=== PATIENT | male | born 1970 | race African-American/Black ===

== ENCOUNTER 2022-06-07 10:36 | Emergency (ER) | payer MEDICAID ==
[~2022-06-07] VITALS: Ht 167.6 cm; Wt 85.3 kg
[2022-06-07 10:39] VITALS: BP 125/80
--- NOTE | 2022-06-07 10:44 | NUR ---
MARK. HANDED ON URINE CUP.
--- NOTE | 2022-06-07 10:58 | NUR ---
C/O 03/07 HEADACHE, DIARRHEA, DIZZINESS X 2 DAYS. PMH: DENIES
[2022-06-07 13:16] LABS: BASOPHILS % (AUTO) 0.6 % (0.0-2.0); EOSINOPHILS # (AUTO) 0.1 K/uL (0-0.4); LYMPHOCYTES # (AUTO) 1.9 K/uL (2.0-11.5); LYMPHOCYTES % (AUTO) 26.4 % (20.5-51.1); MEAN CORPUSCULAR HEMOGLOBIN 30 pg (27-31); MEAN CORPUSCULAR HGB CONC 34 g/dL (33-37); MEAN CORPUSCULAR VOLUME 86.7 fL (80-94); MONOCYTES # (AUTO) 0.6 K/uL (0.8-1.0); MONOCYTES % (AUTO) 7.9 % (1.7-9.3); NEUTROPHILS # (AUTO) 4.5 K/uL (1.8-7.7); NEUTROPHILS % (AUTO) 64.1 % (42.2-75.2); PLATELET COUNT (AUTO) 274 K/uL (140-450); RED BLOOD CELL COUNT(AUTO) 4.73 MIL/uL (4.20-6.10); RED CELL DISTRIBUTION WIDTH 13.5 % (11.6-13.7); WHITE BLOOD COUNT (AUTO) 7.1 K/uL (4.8-10.8)
[2022-06-07 13:40] LABS: ALBUMIN 4.3 g/dL (3.4-5.0); ANION GAP 15.8 (8-16); ASPARTATE AMINOTRANSFERASE 23 U/L (15-37); CARBON DIOXIDE 26.4 mmol/L (21-32); CHLORIDE 102 mmol/L (98-107); GFR ARICAN-AMERICAN 101 mL/min (>90); GLUCOSE 104 mg/dL (74-106); MAGNESIUM 1.7 mg/dL (1.8-2.4); PHOSPHORUS 4.1 mg/dL (2.5-4.9); POTASSIUM 4.2 mmol/L (3.5-5.1); SODIUM SERUM 140 mmol/L (136-145); TOTAL BILIRUBIN 0.6 mg/dL (0.0-1.0); UREA NITROGEN, BLOOD 18 mg/dL (7-18)
--- NOTE | 2022-06-07 15:07 | NUR ---
Pt taken to bed 8.
[2022-06-07 15:17] LABS: APPEARANCE,URINE CLEAR (CLEAR); BILIRUBIN,URINE NEGATIVE (NEGATIVE); BLOOD, URINE NEGATIVE (NEGATIVE); COLOR,URINE YELLOW (YELLOW); LEUKOCYTE ESTERASE ,URINE NEGATIVE (NEGATIVE); NITRITE, URINE NEGATIVE (NEGATIVE); UGLUCOSE NEGATIVE (NEGATIVE)
[2022-06-07 15:52] LABS: BARBITURATE, URINE NEGATIVE ng/ml (NEG <=200); BENZODIAZEPINE, URINE NEGATIVE ng/mL (NEG <=200); CANNABINOID, URINE NEGATIVE ng/mL (NEG <=50); COCAINE, URINE NEGATIVE ng/mL (NEG <=300); OPIATE, URINE NEGATIVE ng/mL (NEG <=2000); PHENCYCLIDINE SCREEN,URINE NEGATIVE ng/mL (NEG <=25)
[2022-06-07] MEDS ORDERED: ACET-10509 PO (16:20)
[2022-06-07 16:26] VITALS: BP 129/82
--- NOTE | 2022-06-07 16:26 | NUR ---
Patient discharged with v/s stable. Written and verbal after care instructions FOR DEHYDRATION given and explained. Patient alert, oriented and verbalized understanding of instructions. Ambulatory with steady gait. All questions addressed prior to discharge. ID band removed. Patient advised to follow up with PMD. Rx of IBUPROFEN given.. Opportunity to ask questions provided and answered.
== END 2022-06-07 16:26 | disposition home or self-care (01) ==
LOC: MED 10:36
DX: R55 Syncope and collapse (principal); E86.0 Dehydration
CPT/HCPCS: 36415; 71045; 80053; 80305; 81003; 83690; 83735; 84100; 84484; 85025; 99284

== ENCOUNTER 2022-08-01 09:48 | Emergency (ER) | payer MEDICAID ==
[~2022-08-01] VITALS: Ht 172.7 cm; Wt 77.1 kg
[~2022-08-01 09:48] MED LIST: ACET-10509 PO
[2022-08-01 09:53] VITALS: BP 141/77
--- NOTE | 2022-08-01 10:39 | NUR ---
PT AMBULATED TO ER BED 5
--- NOTE | 2022-08-01 10:55 | NUR ---
51YO MALE PT C/O L EAR PAIN X1WEEK. -RINGING -DECREASE IN HEARING. EAR PINK W/O SWELLING. DENIES TAKING MEDICATION FOR PAIN, N/V/D, CHEST PAIN, SOB, DIZZINESS , FEVER OR CHILLS. PT AAOX4, HOB POSITIONED PER COMFORT HX:DENIES NKA
--- NOTE | 2022-08-01 11:08 | NUR ---
MICAELA LORENZO AT BEDSIDE FOR EVALUATION
--- NOTE | 2022-08-01 11:29 | NUR ---
pt swabbed for covid. walked and handed to lab
[2022-08-01] MEDS ORDERED: IBUP-2213 PO (11:34)
[2022-08-01] MEDS ORDERED: SUD30 PO (11:34)
--- NOTE | 2022-08-01 11:45 | NUR ---
Patient discharged with v/s stable. Written and verbal after care instructions FOR EARACHE given and explained. Patient alert, oriented and verbalized understanding of instructions. Ambulatory with steady gait. All questions addressed prior to discharge. ID band removed. Patient advised to follow up with PMD. Rx of IBUPROFEN AND SUDAFED given. Opportunity to ask questions provided and answered.
--- NOTE | 2022-08-01 11:46 | NUR ---
The patient's care was reviewed and supervised by Lisa Orr RN.
== END 2022-08-01 11:45 | disposition home or self-care (01) ==
LOC: MED 09:48
DX: H92.03 Otalgia, bilateral (principal); Z20.822 Contact with and (suspected) exposure to COVID-19; Z79.899 Other long term (current) drug therapy
CPT/HCPCS: 99283

== ENCOUNTER 2023-01-23 12:34 | Emergency (ER) | payer MEDICAID ==
[~2023-01-23] VITALS: Ht 167.6 cm; Wt 82.6 kg
[~2023-01-23 12:34] MED LIST changes: +IBUP-2213 PO; +SUD30 PO
[2023-01-23 12:40] VITALS: BP 130/76
[2023-01-23] MEDS ORDERED: KETOROLAC 60 MG/2 ML VIAL IM ONE (13:20)
[2023-01-23] MEDS ORDERED: IBUP-2213 PO (13:40)
[2023-01-23] MEDS ORDERED: PRED20TA5 PO (13:40)
[2023-01-23 13:43] VITALS: BP 130/76
--- NOTE | 2023-01-23 13:44 | NUR ---
Patient discharged with v/s stable. Written and verbal after care instructions given and explained. Patient alert, oriented and verbalized understanding of instructions. Ambulatory with steady gait. All questions addressed prior to discharge. ID band removed. Patient advised to follow up with PMD. Rx of IBUPROFEN, PREDNISONE given. Patient educated on indication of medication including possible reaction and side effects. Opportunity to ask questions provided and answered.
== END 2023-01-23 13:43 | disposition home or self-care (01) ==
LOC: MED 12:34
DX: J02.9 Acute pharyngitis, unspecified (principal); Z79.899 Other long term (current) drug therapy
CPT/HCPCS: 96372; 99283; J1885

== ENCOUNTER 2023-06-03 03:10 | Emergency (ER) | payer MEDICAID ==
[~2023-06-03] VITALS: Ht 167.6 cm; Wt 81.6 kg
[~2023-06-03 03:10] MED LIST changes: +PRED20TA5 PO
[2023-06-03 03:20] VITALS: BP 116/75; PULSE 92; RESP 16; TEMP 98.1; O2SAT 98
[2023-06-03] MEDS ORDERED: OPTHALMIC IRRIGATION 15 ML BTL OP ONE (05:30)
[2023-06-03] MEDS ORDERED: TETRACAINE HCL/PF 0.5% OPTH 4 ML BTL OP ONE (05:30)
[2023-06-03] MEDS ORDERED: TOBR5DRO10 OP (05:59)
[2023-06-03 06:13] VITALS: BP 114/81; PULSE 83; O2SAT 99
== END 2023-06-03 06:31 | disposition home or self-care (01) ==
LOC: MED 03:10
DX: H10.211 Acute toxic conjunctivitis, right eye (principal); Z79.899 Other long term (current) drug therapy
CPT/HCPCS: 99283

== ENCOUNTER 2023-10-16 15:40 | Emergency (ER) | payer MEDICAID ==
[~2023-10-16] VITALS: Ht 167.6 cm; Wt 77.1 kg
[~2023-10-16 15:40] MED LIST changes: +TOBR5DRO10 OP
[2023-10-16 15:48] VITALS: BP 117/73; PULSE 68; RESP 18; TEMP 97.8; O2SAT 99
[2023-10-16 17:05] LABS: BASOPHILS % (AUTO) 0.3 % (0.0-2.0); EOSINOPHILS # (AUTO) 0.1 K/uL (0-0.4); EOSINOPHILS % (AUTO) 1.6 % (0.0-4.0); HEMOGLOBIN 13.2 g/dL (12.0-18.0); LYMPHOCYTES # (AUTO) 2.2 K/uL (2.0-11.5); MEAN CORPUSCULAR HEMOGLOBIN 28 pg (27-31); MEAN CORPUSCULAR HGB CONC 34 g/dL (33-37); MEAN CORPUSCULAR VOLUME 84.2 fL (80-94); MONOCYTES # (AUTO) 0.4 K/uL (0.8-1.0); MONOCYTES % (AUTO) 7.8 % (1.7-9.3); NEUTROPHILS # (AUTO) 2.8 K/uL (1.8-7.7); NEUTROPHILS % (AUTO) 50.3 % (42.2-75.2); PLATELET COUNT (AUTO) 243 K/uL (140-450); RED BLOOD CELL COUNT(AUTO) 4.63 MIL/uL (4.20-6.10); RED CELL DISTRIBUTION WIDTH 13.3 % (11.6-13.7); WHITE BLOOD COUNT (AUTO) 5.5 K/uL (4.8-10.8)
[2023-10-16 17:15] LABS: ANION GAP 13.3 (8-16); CALCIUM 8.8 mg/dL (8.5-10.1); CARBON DIOXIDE 25.6 mmol/L (21-32); CREATININE 1.1 mg/dL (0.6-1.3); POTASSIUM 3.9 mmol/L (3.5-5.1)
[2023-10-16 17:21] LABS: ALBUMIN 3.7 g/dL (3.4-5.0); BILIRUBIN,DIRECT 0.1 mg/dL (0.0-0.3); TOTAL BILIRUBIN 0.5 mg/dL (0.0-1.0); TOTAL PROTEIN, SERUM 8.5 g/dL (6.4-8.2)
[2023-10-16 18:23] VITALS: O2SAT 99
== END 2023-10-16 18:11 | disposition home or self-care (01) ==
LOC: MED 15:40
DX: R20.2 Paresthesia of skin (principal); E11.9 Type 2 diabetes mellitus without complications; Z79.4 Long term (current) use of insulin; Z79.899 Other long term (current) drug therapy
CPT/HCPCS: 36415; 80048; 80076; 85025; 99283

== ENCOUNTER 2023-12-28 11:13 | Emergency (ER) | payer MEDICAID ==
[~2023-12-28] VITALS: Ht 167.6 cm; Wt 77.1 kg
[2023-12-28 11:21] VITALS: BP 116/69; PULSE 61; RESP 18; TEMP 98; O2SAT 98
[2023-12-28 12:29] LABS: BASOPHILS % (AUTO) 0.5 % (0.0-2.0); EOSINOPHILS # (AUTO) 0.1 K/uL (0-0.4); EOSINOPHILS % (AUTO) 1.3 % (0.0-4.0); HEMATOCRIT 39.1 % (36-52); HEMOGLOBIN 13.1 g/dL (12.0-18.0); LYMPHOCYTES # (AUTO) 1.9 K/uL (2.0-11.5); LYMPHOCYTES % (AUTO) 42.6 % (20.5-51.1); MEAN CORPUSCULAR HEMOGLOBIN 28 pg (27-31); MEAN CORPUSCULAR HGB CONC 34 g/dL (33-37); MEAN CORPUSCULAR VOLUME 84.3 fL (80-94); MONOCYTES # (AUTO) 0.4 K/uL (0.8-1.0); MONOCYTES % (AUTO) 8.6 % (1.7-9.3); NEUTROPHILS # (AUTO) 2.1 K/uL (1.8-7.7); PLATELET COUNT (AUTO) 248 K/uL (140-450); RED BLOOD CELL COUNT(AUTO) 4.63 MIL/uL (4.20-6.10); RED CELL DISTRIBUTION WIDTH 13.9 % (11.6-13.7); WHITE BLOOD COUNT (AUTO) 4.6 K/uL (4.8-10.8)
[2023-12-28 12:41] VITALS: O2SAT 98
[2023-12-28 12:42] LABS: ANION GAP 11.7 (8-16); CALCIUM 9.4 mg/dL (8.5-10.1); CARBON DIOXIDE 28.4 mmol/L (21-32); CREATININE 1.2 mg/dL (0.6-1.3); POTASSIUM 4.1 mmol/L (3.5-5.1)
[2023-12-28 12:48] LABS: ALANINE AMINOTRANSFERASE 47 U/L (12-78); ALKALINE PHOSPHATASE 75 U/L (50-136); ASPARTATE AMINOTRANSFERASE 23 U/L (15-37); BILIRUBIN,DIRECT 0.1 mg/dL (0.0-0.3); TOTAL BILIRUBIN 0.5 mg/dL (0.0-1.0); TOTAL PROTEIN, SERUM 7.5 g/dL (6.4-8.2)
== END 2023-12-28 14:11 | disposition home or self-care (01) ==
LOC: MED 11:13
DX: R07.89 Other chest pain (principal); E11.9 Type 2 diabetes mellitus without complications; Z79.1 Long term (current) use of non-steroidal anti-inflammatories (NSAID); Z79.899 Other long term (current) drug therapy
CPT/HCPCS: 36415; 71045; 80048; 80076; 82948; 83880; 84484; 85025; 93005; 99285